=== PATIENT | male | born 2000 | race Asian ===

== ENCOUNTER 2025-08-06 13:24 | Emergency (ER) | payer OTHER ==
[~2025-08-06] VITALS: Ht 165.1 cm; Wt 67.7 kg
[2025-08-06] MEDS ORDERED: TRIA1CR80 TOP (15:02)
[2025-08-06 15:05] VITALS: BP 133/76; TEMP 98.1; O2SAT 96
== END 2025-08-06 15:13 | disposition home or self-care (01) ==
LOC: M ED 14:30
DX: S10.96XA Insect bite of unspecified part of neck, initial encounter (principal); S00.462A Insect bite (nonvenomous) of left ear, initial encounter; W57.XXXA Bitten or stung by nonvenomous insect and other nonvenomous arthropods, initial encounter; Y92.9 Unspecified place or not applicable; Y93.9 Activity, unspecified; Y99.9 Unspecified external cause status